=== PATIENT | female | born 1955 | race Two or more races ===

== ENCOUNTER 2016-08-13 12:44 | Emergency (ER) | payer SELFPAY | END 2016-08-13 15:58 | disposition left against medical advice (07) | LOC: ER 12:51 | DX: R07.9 Chest pain, unspecified (principal); R03.0 Elevated blood-pressure reading, without diagnosis of hypertension; Z53.21 Procedure and treatment not carried out due to patient leaving prior to being seen by health care provider | CPT/HCPCS: 71020; 82962; 93005 ==